=== PATIENT | female | born 1980 | race Two or more races ===

== ENCOUNTER 2021-04-25 01:07 | Emergency (ER) | payer BC ==
[~2021-04-25] VITALS: Ht 160 cm; Wt 65.8 kg
[2021-04-25] MEDS ORDERED: ONDANSETRON HCL/PF 4 MG/2 ML VIAL IVP ONE (01:30)
[2021-04-25] MEDS ORDERED: KETOROLAC TROMETHAMINE INJ 30 MG/ML VIAL IV ONE (01:30)
[2021-04-25] MEDS ORDERED: IV NS 0.9% 1,000 ML BAG IV ONE (01:30)
--- NOTE | 2021-04-25 01:30 | NUR ---
BIBS C/O LEFT FLANK PAIN RADIATING TO LEFT ABDOMEN XFEW HOURS +NAUSEA HX OF KIDNEY STONES. PT A/OX4. TOLERATING R/A WELL AT 99% WITH NO SOB. CONNECTED PT TO POX AND MONITOR.
[2021-04-25] MEDS ORDERED: KETOROLAC TROMETHAMINE INJ 30 MG/ML VIAL ONE (01:34)
[2021-04-25] MEDS ORDERED: ONDANSETRON HCL/PF 4 MG/2 ML VIAL ONE (01:34)
--- NOTE | 2021-04-25 01:36 | NUR ---
URINE COLLECTED AND SENT TO LAB
--- NOTE | 2021-04-25 01:37 | NUR ---
DR. JEFF COX AT PT'S BEDSIDE
--- NOTE | 2021-04-25 01:40 | NUR ---
LAC #18G S/L; PATENT AND INTACT. BLOOD COLLECTED AND SENT TO LAB
[2021-04-25 02:12] LABS: BASOPHILS % (AUTO) 0.2 % (0.0-2.0); EOSINOPHILS % (AUTO) 0.9 % (0.0-6.0); HEMATOCRIT 41 % (33-45); HEMOGLOBIN 13.5 g/dL (11.5-14.8); LYMPHOCYTES # (AUTO) 1.5 K/uL (0.8-4.8); LYMPHOCYTES % (AUTO) 10.7 % (20.0-44.0); MEAN CORPUSCULAR HGB CONC 33 g/dl (31.0-36.0); MEAN CORPUSCULAR VOLUME 93 fL (82-100); MONOCYTES # (AUTO) 1.3 K/uL (0.1-1.30); MONOCYTES % (AUTO) 9.6 % (2.0-12.0); NEUTROPHILS # (AUTO) 10.8 K/uL (1.8-8.9); NEUTROPHILS % (AUTO) 78.6 % (43.0-81.0); PLATELET COUNT (AUTO) 314 K/uL (150-450); RED BLOOD CELL COUNT(AUTO) 4.41 MIL/uL (4.0-5.2); WHITE BLOOD COUNT (AUTO) 13.7 K/uL (4.3-11.0)
[2021-04-25 02:13] LABS: BILIRUBIN,URINE NEGATIVE (NEGATIVE); COLOR,URINE YELLOW (YELLOW); LEUKOCYTE ESTERASE ,URINE SMALL (NEGATIVE); NITRITE, URINE POSITIVE (NEGATIVE); PROTEIN,URINE 30 mg/dl (NEGATIVE); UGLUCOSE NEGATIVE (NEGATIVE); UROBILINOGEN,URINE 0.2 EU/dL (0.2)
--- NOTE | 2021-04-25 03:14 | NUR ---
PATIENT TAKEN TO CT
--- NOTE | 2021-04-25 03:22 | NUR ---
PATIENT RETURNED FROM CT
[2021-04-25] MEDS ORDERED: NITROFURANTOIN/MONOHYDRATE MACROCRYSTALS 100 MG CAPSULE PO ONE (05:30)
[2021-04-25] MEDS ORDERED: NITR100C6 PO (05:30)
[2021-04-25] MEDS ORDERED: NITROFURANTOIN/MONOHYDRATE MACROCRYSTALS 100 MG CAPSULE ONE (05:39)
--- NOTE | 2021-04-25 06:06 | NUR ---
US AT BEDSIDE
--- NOTE | 2021-04-25 07:32 | NUR ---
ASSESSED PT ON BED ASLEEP EASILY AROUSABLE, NOT IN RESPIRATORY DISTRESS, V/S STABLE, KEPT RESTED AND COMFORTABLE. WILL CONTINUE TO MONITOR.
[2021-04-25 08:00] LABS: BACTERIA,URINE Few /HPF (None Seen); RBC,URINE 51-80 /HPF (0-2); SQUAMOUS EPITHELIAL CELL,UR Rare /HPF (None Seen); WBC,URINE 21-50 /HPF (0-3)
[2021-04-25 08:35] LABS: CALCIUM, SERUM 9.4 mg/dL (8.5-10.1)
[2021-04-25 08:36] LABS: ALBUMIN 3.9 g/dL (3.4-5.0); BILIRUBIN,DIRECT 0.1 mg/dL (0.0-0.2); BILIRUBIN,TOTAL 0.3 mg/dL (0.2-1.0); CREATININE 0.8 mg/dL (0.6-1.3)
[2021-04-25 08:37] LABS: TOTAL PROTEIN, SERUM 7.8 g/dL (6.4-8.2)
[2021-04-25 08:54] VITALS: BP 115/61
--- NOTE | 2021-04-25 08:54 | NUR ---
IV removed. Catheter intact and site benign. Pressure and 4x4 applied to site. No bleeding noted. Patient discharged to home in stable condition. Written and verbal after care instructions given. Patient verbalizes understanding of instruction.
== END 2021-04-25 08:55 | disposition home or self-care (01) ==
LOC: ER 01:15
DX: N39.0 Urinary tract infection, site not specified (principal); R10.32 Left lower quadrant pain; Z60.2 Problems related to living alone
CPT/HCPCS: 36415; 74176; 76856; 80048; 80076; 81001; 83690; 84703; 85025; 85730; 87077; 87086; 87186; 96361; 96374; 96375; 99284; J1885; J2405; J7030

== ENCOUNTER 2025-02-06 00:42 | Emergency (ER) | payer SELFPAY ==
[~2025-02-06] VITALS: Ht 162.6 cm; Wt 74.8 kg
[~2025-02-06 00:42] MED LIST: NITR100C6 PO
[2025-02-06 01:13] VITALS: TEMP 98.6
[2025-02-06 01:31] VITALS: BP 144/87; O2SAT 96
[2025-02-06] MEDS ORDERED: KETOROLAC TROMETHAMINE 15 MG/ML VIAL ONE (01:37)
[2025-02-06] MEDS: KETOROLAC TROMETHAMINE 15 MG/ML VIAL IV ONE (01:51)
[2025-02-06] MEDS ORDERED: IV NS 0.9% 250 ML IV ONE (02:11)
[2025-02-06] MEDS ORDERED: IOHEXOL-350 100 ML VIAL IV ONE (02:11)
[2025-02-06] MEDS ORDERED: CT SWABBABLE VALVE TRANS SET 1 EA INFUS.SET MC ONE (02:12)
[2025-02-06 02:35] LABS: PLATELET COUNT (AUTO) 275 K/uL (150-450); RED BLOOD CELL COUNT(AUTO) 4.83 MIL/uL (4.0-5.2); RED CELL DISTRIBUTION WIDTH 14.0 % (11.5-15.0); WHITE BLOOD COUNT (AUTO) 7.7 K/uL (4.3-11.0)
[2025-02-06 02:40] LABS: APPEARANCE,URINE CLEAR (CLEAR); BLOOD, URINE TRACE-INTA Ery/uL (NEGATIVE); LEUKOCYTE ESTERASE ,URINE NEGATIVE (NEGATIVE); NITRITE, URINE NEGATIVE (NEGATIVE); UGLUCOSE NEGATIVE (NEGATIVE)
[2025-02-06 02:42] LABS: CALCIUM, SERUM 8.5 mg/dL (8.5-10.1); CREATININE 0.7 mg/dL (0.6-1.3); SODIUM SERUM 140.0 mmol/L (136-145); UREA NITROGEN, BLOOD 11.0 mg/dL (7-18)
[2025-02-06 02:43] LABS: ADD URINE CULTURE NO; PREGNANCY TEST URINE QUAL NEGATIVE (NEGATIVE); SQUAMOUS EPITHELIAL CELL,UR 0-2 /HPF (None Seen)
[2025-02-06 02:48] LABS: ASPARTATE AMINOTRANSFERASE 8.0 U/L (15-37); TOTAL PROTEIN, SERUM 7.5 g/dL (6.4-8.2)
[2025-02-06] MEDS ORDERED: IOHEXOL-300 100 ML VIAL IV ONE (03:08)
== END 2025-02-06 06:33 | disposition home or self-care (01) ==
LOC: ER 00:52
DX: D25.9 Leiomyoma of uterus, unspecified (principal); R10.20 Pelvic and perineal pain unspecified side
CPT/HCPCS: 99285; 74177; 96374; 85025; 80048; 80076; 84703; 81001; 36415; 84702; J1885; J7050; Q9967 ×2